=== PATIENT | female | born 1945 ===

== ENCOUNTER 2020-09-09 07:15 | Day surgery (SDC) | payer OTHER | END 2020-09-09 12:50 | disposition home or self-care (01) | LOC: AMB-ENDOS 07:15 | PROVIDERS: ATTEND Colon & Rectal Surgery | DX: D12.3 Benign neoplasm of transverse colon (principal); K64.1 Second degree hemorrhoids; Z20.822 Contact with and (suspected) exposure to COVID-19 ==